=== PATIENT | male | born 1995 | race Asian ===

== ENCOUNTER 2021-07-23 13:55 | Emergency (ER) | payer OTHER ==
[2021-07-23 15:08] LABS: HIV (1/2) Antibody/Antigen Non-Reactive (NonReactive); HIV 1/2 INDEX 0.06 S/CO (<1.00)
[2021-07-24 16:06] LABS: Hep C IgG Ab Non-Reactive (NonReactive)
[2021-07-24 16:54] LABS: HBSAB Concentration 2282.55 mIU/mL; Hep B Surf AB Reactive (NonReactive)
== END 2021-07-23 14:09 | disposition home or self-care (01) ==
LOC: CSHERS 13:55
DX: Z77.21 Contact with and (suspected) exposure to potentially hazardous body fluids (principal)
CPT/HCPCS: 86706; 86803; 87389; 99283